=== PATIENT | female | born 1995 | race Caucasian/White ===

== ENCOUNTER → 2018-02-02 | Outpatient (CLI) | payer OTHER | END | disposition home or self-care (01) | LOC: C.LABSPEC 11:15 | PROVIDERS: ATTEND Physician Assistant | DX: N89.8 Other specified noninflammatory disorders of vagina (principal) ==

== ENCOUNTER 2018-02-12 17:24 | Emergency (ER) | payer OTHER ==
[2018-02-12 17:31] VITALS: TEMP 36.7; Ht 177.8 cm
[2018-02-12] MEDS ORDERED: ONDANSETRON INJ 2 MG/ML 2 ML VIAL IV STA ×2 (17:41→21:05)
[2018-02-12] MEDS ORDERED: HYDROmorphone INJ 1 MG/ML SYR IV STA ×2 (17:41→18:27)
[2018-02-12] MEDS ORDERED: SODIUM CHLORIDE 0.9% 1000ML 1,000 ML IV STA ×3 (17:41→20:07)
--- NOTE | 2018-02-12 18:15 | EMERGENCY ROOM VISIT NOTE ---
History Report prepared by Monique: Jose Angel Michelle Under the Supervision of: Dr. Donnie Gomes M.D. First contact with patient: 17:33 Chief Complaint: ILLNESS Stated Complaint: POST-OP (02/07) CHILLS, FEVER, ACHES, VOMIT,NAUSEA History of Present Illness The patient is a 23 year old female who presents to the Emergency Room with complaints of worsening post-operational symptoms of fevers, chills, and nausea that began today. Patient states that her fever was 99. Patient adds that she vomited today. She adds that she has tingling in her arms. Patient states that she is also having difficulty breathing. Patient states that she had a total left knee replacement done 5 days ago at [facility]. Patient states that the bruising, swelling, and redness of her left leg began today. She states that she reached out to the surgeon who performed her surgery who said that "it was too early post-op" for her to have an infection. She states that she has had 5 knee surgeries. She states that she has not had similar symptoms after her other knee surgeries. Pertinent past medical history includes knee osteoarthritis. Patient states that she has taken Tylenol for the symptoms. Patient states that she gets adverse affects to oxycodone. Patient states that she is currently taking Coumadin. She states she used to take Lovenox. Patient denies taking narcotics on a regular basis. Source of History: patient Onset: Today Position: head, leg (left) Timing: worsening Associated Symptoms: + vomiting, + numbness (Tingling in arms) Note: Patient has left leg swelling and redness and breathing problems. Review of Systems See HPI for pertinent positives & negatives. A total of 10 systems reviewed and were otherwise negative. Past Medical & Surgical Medical Problems: (1) Osteoarthritis Surgical Problems: (1) H/O breast augmentation (2) History of knee surgery (3) Hx of tonsillectomy Family History Heart disease Hypertension Kidney disease Kidney stones Social History Smoking Status: Never Smoker Alcohol Use: occasionally Marital Status: single Occupation Status: employed Current/Historical Medications Scheduled Multivit/Min/Iron/Fol Ac/Pren ( Vitamin), 1 TAB PO DAILY Warfarin Sod (Jantoven), 2.5 MG PO DAILY Scheduled PRN Ondansetron Hcl (Zofran), 4 MG PO Q8 PRN for Nausea Tramadol (Ultram), 50 MG PO Q4H PRN for Pain Allergies Coded Allergies: Oxycodone (Unverified Allergy, Intermediate, ITCHY, NAUSEA, 02/12/18) Physical Exam Vital Signs Date Time Temp Pulse Resp B/P (MAP) Pulse Ox O2 Delivery O2 Flow Rate FiO2 02/12/18 22:31 105 20 104/71 100 Room Air 02/12/18 21:09 100 20 113/69 100 Room Air 02/12/18 19:10 97 16 126/69 100 02/12/18 17:31 36.7 114 18 96/54 100 Room Air Physical Exam GENERAL: Patient is ill appearing and in moderate distress. EYES: No scleral icterus, unremarkable pupils. ENT: Mucous membranes moist, no nasal congestion. NECK: No masses appreciated, no meningismus, trachea is midline. RESPIRATORY: No dyspnea. Crackles bilaterally in the lower lungs. No wheeze, no rhonchi. CARDIOVASCULAR: Tachycardic rate and rhythm. No murmurs, rubs, gallops appreciated. GASTROINTESTINAL: Abdomen soft, nontender, no peritonitis. Bowel sounds positive. No masses appreciated. BACK: No midline tenderness, no CVA tenderness EXTREMITIES: Swollen and ecchymotic left knee with diffuse bruising; anterior surgical incision with andrei, tense without oozing or bleeding; intact pulses distally, no calf tenderness to palpitation otherwise normal motion all extremities, no cyanosis, no edema. NEUROLOGIC: Alert and oriented, no acute motor or sensory deficits, no focal weakness, cranial nerves grossly intact. SKIN: Flushed with erythema streaking from left knee to left groin, no rash, no jaundice. Medical Decision & Procedures ER Provider Diagnostic Interpretation: Radiology results and stated below per my review and radiologist interpretation: CHEST ONE VIEW PORTABLE HISTORY: fever COMPARISON: None. FINDINGS: The lungs are clear. Cardiac silhouette is normal in size. No pleural effusions. No pneumothorax. IMPRESSION: No acute process. Electronically signed by: Carlos Lee M.D. 02/12/2018 6:27 PM LEFT KNEE 2 VIEWS HISTORY: swelling s/p left knee replacement 5 days ago COMPARISON: None. FINDINGS: There is no fracture or dislocation. There is a left total knee arthroplasty. The hardware appears intact. Anterior skin andrei are noted. There is anterior soft tissue swelling. Small to moderate joint effusion. Small amount of suprapatellar soft tissue gas. This favors the recent postoperative change. No bony destruction identified at this time. IMPRESSION: 1. Anterior soft tissue swelling and a small to moderate joint effusion. This is nonspecific but may be due to the recent postoperative change. A superimposed cellulitis cannot be excluded. 2. A few small foci of soft tissue gas within the suprapatellar soft tissues. This is also nonspecific but favors recent postoperative change. 3. No fracture or dislocation within the left knee. Electronically signed by: Carlos Lee M.D. 02/12/2018 6:29 PM Laboratory Results 02/12/18 18:36 Red Blood Count 3.32, Mean Corpuscular Volume 85.8, Mean Corpuscular Hemoglobin 29.5, Mean Corpuscular Hemoglobin Concent 34.4, Mean Platelet Volume 9.5, Neutrophils (%) (Auto) 56.5, Lymphocytes (%) (Auto) 27.4, Monocytes (%) (Auto) 10.7, Eosinophils (%) (Auto) 4.9, Basophils (%) (Auto) 0.3, Neutrophils # (Auto ) 3.60, Lymphocytes # (Auto) 1.74, Monocytes # (Auto) 0.68, Eosinophils # (Auto ) 0.31, Basophils # (Auto) 0.02 02/12/18 18:36 Test 02/12/18 18:26 02/12/18 18:36 02/12/18 19:54 Urine Color YELLOW Urine Appearance CLEAR (CLEAR) Urine pH >= 9.0 (4.5-7.5) Urine Specific [place] 1.009 (1.000-1.030) Urine Protein NEG (NEG) Urine Glucose (UA) NEG (NEG) Urine Ketones NEG (NEG) Urine Occult Blood NEG (NEG) Urine Nitrite NEG (NEG) Urine Bilirubin NEG (NEG) Urine Urobilinogen NEG (NEG) Urine Leukocyte Esterase NEG (NEG) Urine WBC (Auto) 0 /hpf (0-5) Urine RBC (Auto) 0-4 /hpf (0-4) Urine Hyaline Casts (Auto) 0 /lpf (0-5) Urine Epithelial Cells (Auto) 20-30 /lpf (0-5) Urine Bacteria (Auto) NEG (NEG) White Blood Count 6.36 K/uL (4.8-10.8) Red Blood Count 3.32 M/uL (4.2-5.4) Hemoglobin 9.8 g/dL (12.0-16.0) Hematocrit 28.5 % (37-47) Mean Corpuscular Volume 85.8 fL (80-100) Mean Corpuscular Hemoglobin 29.5 pg (25-34) Mean Corpuscular Hemoglobin Concent 34.4 g/dl (32-36) Platelet Count 307 K/uL (130-400) Mean Platelet Volume 9.5 fL (7.4-10.4) Neutrophils (%) (Auto) 56.5 % Lymphocytes (%) (Auto) 27.4 % Monocytes (%) (Auto) 10.7 % Eosinophils (%) (Auto) 4.9 % Basophils (%) (Auto) 0.3 % Neutrophils # (Auto) 3.60 K/uL (1.4-6.5) Lymphocytes # (Auto) 1.74 K/uL (1.2-3.4) Monocytes # (Auto) 0.68 K/uL (0.11-0.59) Eosinophils # (Auto) 0.31 K/uL (0-0.5) Basophils # (Auto) 0.02 K/uL (0-0.2) RDW Standard Deviation 37.4 fL (36.4-46.3) RDW Coefficient of Variation 11.9 % (11.5-14.5) Immature Granulocyte % (Auto) 0.2 % Immature Granulocyte # (Auto) 0.01 K/uL (0.00-0.02) Prothrombin Time 16.1 SECONDS (9.0-12.0) Prothromb Time International Ratio 1.5 (0.9-1.1) Anion Gap 12.0 mmol/L (3-11) Estimated GFR () 122.5 Estimated GFR (Non- 105.7 BUN/Creatinine Ratio 11.5 (10-20) Calcium Level 8.2 mg/dl (8.5-10.1) Magnesium Level 1.9 mg/dl (1.8-2.4) Total Bilirubin 1.2 mg/dl (0.2-1) Direct Bilirubin 0.4 mg/dl (0-0.2) Aspartate Amino Transf (AST/SGOT) 64 U/L (15-37) Alanine Aminotransferase (ALT/SGPT) 61 U/L (12-78) Alkaline Phosphatase 88 U/L (45-117) Total Creatine Kinase 55 U/L (26-192) C-Reactive Protein 12.80 mg/dl (0-0.29) Total Protein 7.0 gm/dl (6.4-8.2) Albumin 2.8 gm/dl (3.4-5.0) Bedside Lactic Acid Venous 2.80 mmol/L (0.90-1.70) Laboratory results as reviewed by me. Medications Administered Medications (Trade) Dose Ordered Sig/Yasmeen Route Start Time Stop Time Status Last Admin Dose Admin Sodium Chloride 1,000 ml @ 999 mls/hr Q1H1M STAT IV 02/12/18 17:41 02/12/18 18:41 DC 02/12/18 18:05 999 MLS/HR Hydromorphone HCl (Dilaudid Inj) 1 mg NOW STAT IV 02/12/18 17:41 02/12/18 17:43 DC 02/12/18 18:06 1 MG Hydromorphone HCl (Dilaudid Inj) 1 mg Q15M PRN IV 02/12/18 17:45 02/26/18 17:44 02/12/18 22:32 1 MG Ondansetron HCl (Zofran Inj) 4 mg NOW STAT IV 02/12/18 17:41 02/12/18 17:43 DC 02/12/18 18:06 4 MG Sodium Chloride 1,000 ml @ 999 mls/hr Q1H1M STAT IV 02/12/18 19:05 02/12/18 20:05 DC 02/12/18 19:10 999 MLS/HR Vancomycin HCl 1500 mg/Sodium Chloride 530 ml @ 200 mls/hr ONE STAT IV 02/12/18 19:59 02/12/18 22:37 DC 02/12/18 20:24 200 MLS/HR Cefepime HCl 1000 mg/Dextrose 111 ml @ 200 mls/hr NOW STAT IV 02/12/18 19:59 02/12/18 20:32 DC 02/12/18 20:24 200 MLS/HR Sodium Chloride 1,000 ml @ 999 mls/hr Q1H1M STAT IV 02/12/18 20:07 02/12/18 21:07 DC 02/12/18 20:23 999 MLS/HR Ondansetron HCl (Zofran Inj) 4 mg NOW STAT IV 02/12/18 21:05 02/12/18 21:06 DC 02/12/18 21:10 4 MG ED Course 1734: The patient was evaluated in room A12. A complete history and physical exam was performed. 1817: I reassessed the patient. She states that she has had no improvement with the initial pain medications. 1901: Patient states that she is feeling much better. She is still tachycardic. I ordered the patient another liter of fluid. 2001:I reevaluated the patient. She states that her pain is returning. Patient' s cellulitis of her left thigh has increased since being in the ER. After 2 liters of fluid the patient lactic acid is 2.9. Patient's blood pressure has improved. Patient is agreeable to inpatient stay. 2003: I paged the on-call physician for Dr. Clemons of [facility]. 2057: I discussed at length with the patient her findings and the concerns that her surgeons are in [place]. Patient states that she is now willing to be transferred to [place] for further evaluation. 2138: Upon reevaluation, the patient will be further evaluated. Discussed results and treatment plan with the patient. She verbalized understanding and agreement with the treatment plan. The patient will be evaluated for further management. Medical Decision Differential: Fracture, Dislocation, Cellulitis, Septic Joint, Ligamentous Injury, Effusion, DVT, pneumonia, UTI, sepsis amongst other pathologies entertained. 23 yr old female s/p left knee replacement 4-5 days ago arrives fevers, chills, tachycardia, hypotension and left knee pain. Swelling left knee without erythema though significant bruising which is quite TTP and uncomfortable with any movement. Associated weakness and nausea. Also with streaking of erythema up medial left thigh. Having increasing pain requiring multiple rounds IV Dilaudid. By exam/history she is septic and thus blood cultures/lactic acid ordered. Not sob except due to pain, nor hypoxia and thus I do not feel this is PE. She just took Tylenol [employer] thus I suspect why fever currently down. Difficulty getting labs initially thus given 2 L NSS empirically awaiting redraw. Lactic acid 2.8 even after 2 LNSS Thus another L ordered. She was given empiric Cefepime/Vanco for sepsis. She initially made clear she did not want to be transferred to [facility] thus I attempted to have her admitted here though after discussing that further with patient after making her aware that we do not do this surgery here, that her surgeons are in [place] she is finally willing to be evaluated there. Throughout this I made many re- evaluations of patient. She does admit +MRSA in past but as already given Vanco I think this is covered. She initially planned staying here and with that not to have any surgery emergently she ate some food, which I made her NPO once she was willing to go to [place]. Dr Pro graciously accepts patient to [facility] for continuity of her care and it being a tertiary care center. Initially planned US left leg but given she is being transferred to [place] will hold off on this. Will hold on further anticoagulation in case need for OR. She does not have evidence compartment syndrome nor n/v compromise and she had good pulse and sensation in foot. Most of IV Vanco in at time of EMS arrival thus I had them dc med as can't be transported by EMS and she was transferred to [facility] for further evaluation. Medication Reconcilliation Current Medication List: was personally reviewed by me Blood Pressure Screening Patient's blood pressure: Normal blood pressure Blood pressure disposition: Did not require urgent referral Consults Time Called: 2017 Consulting Physician: Dr. Alicea - [facility] Returned Call: 2019 Discussed the patient's case. Dr. Alicea states that he is willing to evaluate the patient at [facility]. However, he feels that it is reasonable to do a sepsis workup on the patient with empiric antibiotics. He recommends getting a ultrasound on the patient's LLE. Additional Consults: Time Called: 2028 Consulted Physician: Dr. Ring - [facility] Returned Call: 2029 Additional Comments: Discussed the patient's case. Dr. Ring requested that I talk to orthopedics here before admitting the patient. Time Called: 2044 Consulted Physician: Dr. Katerine Pathak [facility] Returned Call: 2048 Additional Comments: Discussed the patient's case. Dr. Garcias makes clear that the patient's surgery was at a tertiary caring center and she should be evaluated there. He states that if the patient is refusing transfer, we are willing to take a look but only after the patient is medically stable. He states that we cannot perform definitive treatment or diagnosis on the patient. He recommends that I clearly explain this to the patient. However, Dr. Garcias notes that he is willing to follow a long with the patient's case. Time Called: 2057 Consulted Physician: Dr. Juarez - [facility] Returned Call: 2102 Additional Comments: Discussed the patient's case. Dr. Juarez has accepted the patient for transfer. The patient will be evaluated for further treatment and disposition. Impression Primary Impression: Sepsis Additional Impressions: Lactic acid acidosis Left leg cellulitis Effusion of left knee Post-operative pain Critical Care I have personally spent greater than 45 minutes of critical care time in the direct management of this patient. This was a life/limb threatening event. This includes time spent evaluating patient, direct bedside care, chart review, placing orders, interpretation of diagnostic studies, discussion with consultants, patient, and family members, as well as other required patient management activities. This 45 minutes is in excess of all separately billable procedures. Scribe Attestation The scribe's documentation has been prepared under my direction and personally reviewed by me in its entirety. I confirm that the note above accurately reflects all work, treatment, procedures, and medical decision making performed by me. Departure Information Dispostion Transfer Acute Care Facility Referrals Arvin Melara MD (PCP) Forms HOME CARE DOCUMENTATION FORM, IMPORTANT VISIT INFORMATION, WORK / SCHOOL INSTRUCTIONS Patient Instructions My [facility] Problem Qualifiers
[2018-02-12] MEDS ORDERED: ONDA4TAB46 PO (18:17)
[2018-02-12] MEDS ORDERED: WARF2.5T8 PO (18:17)
[2018-02-12] MEDS ORDERED: PRENTAB26 PO (18:17)
[2018-02-12] MEDS ORDERED: TRAM-10 PO (18:17)
--- NOTE | 2018-02-12 18:29 | DIAGNOSTIC IMAGING REPORT ---
CHEST ONE VIEW PORTABLE HISTORY: fever COMPARISON: None. FINDINGS: The lungs are clear. Cardiac silhouette is normal in size. No pleural effusions. No pneumothorax. IMPRESSION: No acute process. Electronically signed by: Carlos Lee M.D. 02/12/2018 6:27 PM Dictated Date/Time: 02/12/2018 6:26 PM
--- NOTE | 2018-02-12 18:31 | DIAGNOSTIC IMAGING REPORT ---
LEFT KNEE 2 VIEWS HISTORY: swelling s/p left knee replacement 5 days ago COMPARISON: None. FINDINGS: There is no fracture or dislocation. There is a left total knee arthroplasty. The hardware appears intact. Anterior skin andrei are noted. There is anterior soft tissue swelling. Small to moderate joint effusion. Small amount of suprapatellar soft tissue gas. This favors the recent postoperative change. No bony destruction identified at this time. IMPRESSION: 1. Anterior soft tissue swelling and a small to moderate joint effusion. This is nonspecific but may be due to the recent postoperative change. A superimposed cellulitis cannot be excluded. 2. A few small foci of soft tissue gas within the suprapatellar soft tissues. This is also nonspecific but favors recent postoperative change. 3. No fracture or dislocation within the left knee. Electronically signed by: Carlos Lee M.D. 02/12/2018 6:29 PM Dictated Date/Time: 02/12/2018 6:28 PM
[2018-02-12 19:02] LABS: BASO % 0.3 %; BASO ABS # 0.02 K/uL (0-0.2); EOS % 4.9 %; EOS ABS # 0.31 K/uL (0-0.5); HEMATOCRIT 28.5 % (37-47); HEMOGLOBIN 9.8 g/dL (12.0-16.0); IG# 0.01 K/uL (0.00-0.02); LYMPH % 27.4 %; LYMPH ABS # 1.74 K/uL (1.2-3.4); MEAN CELL VOLUME 85.8 fL (80-100); MEAN CORPUSCULAR HEMOGLOBIN 29.5 pg (25-34); MEAN CORPUSCULAR HGB CONC 34.4 g/dl (32-36); MEAN PLATELET VOLUME 9.5 fL (7.4-10.4); MONO % 10.7 %; MONO ABS # 0.68 K/uL (0.11-0.59); NEUT % 56.5 %; PLATELET COUNT 307 K/uL (130-400); RED CELL DISTRIBUTION WIDTH CV 11.9 % (11.5-14.5); RED CELL DISTRIBUTION WIDTH SD 37.4 fL (36.4-46.3); WHITE BLOOD COUNT 6.36 K/uL (4.8-10.8)
[2018-02-12 19:06] LABS: INR 1.5 (0.9-1.1)
[2018-02-12 19:08] LABS: ALBUMIN 2.8 gm/dl (3.4-5.0); ALT/SGPT 61 U/L (12-78); AST/SGOT 64 U/L (15-37); BLOOD UREA NITROGEN 9 mg/dl (7-18); CALCIUM 8.2 mg/dl (8.5-10.1); CARBON DIOXIDE 20 mmol/L (21-32); CREATININE 0.78 mg/dl (0.60-1.20); GLUCOSE 96 mg/dl (70-99); SODIUM 138 mmol/L (136-145)
[2018-02-12 19:11] LABS: ALKALINE PHOSPHATASE 88 U/L (45-117)
[2018-02-12] MEDS: HYDROmorphone INJ 1 MG/ML SYR IV PRN ×3 (19:50→22:32)
[2018-02-12] MEDS ORDERED: CEFEPIME IV 1,000 MG in DEXTROSE 5% 100ML 100 ML IV STA (19:59)
[2018-02-12] MEDS ORDERED: VANCOMYCIN IV 1,500 MG in SODIUM CHLORIDE 0.9% 500ML 500 ML IV STA (19:59)
[2018-02-12] MEDS ORDERED: VANCOMYCIN CONSULT ACTIVE PRN (20:00)
[2018-02-12] MEDS ORDERED: ONDANSETRON INJ 2 MG/ML 2 ML VIAL ONE (21:06)
[2018-02-12] MEDS ORDERED: HYDROmorphone INJ 2 MG/ML SYR/VIAL IV STA (21:27)
[2018-02-12 22:31] VITALS: BP 104/71; PULSE 105; O2SAT 100
== END 2018-02-12 22:45 | disposition short-term general hospital (02) ==
LOC: C.EDB 17:25 → C.EDA 22:45
DX: A41.9 Sepsis, unspecified organism (principal); E87.4 Mixed disorder of acid-base balance; L03.116 Cellulitis of left lower limb; M25.462 Effusion, left knee; G89.18 Other acute postprocedural pain